=== PATIENT | female | born 1995 | race Caucasian/White ===

== ENCOUNTER 2017-07-22 19:27 | Emergency (ER) | payer OTHER ==
[2017-07-22] MEDS: ONDANSETRON 4MG/2ML VIAL (J2405) IV (20:40)
[2017-07-22] MEDS: NS 1,000 ML IV (20:40)
== END 2017-07-22 21:51 | disposition home or self-care (01) ==
LOC: M ED 19:27
DX: O21.0 Mild hyperemesis gravidarum (principal); Z3A.01 Less than 8 weeks gestation of pregnancy; Z87.891 Personal history of nicotine dependence
CPT/HCPCS: J2405

== ENCOUNTER 2017-08-07 08:26 | Emergency (ER) | payer OTHER ==
[2017-08-07] MEDS: NS 1,000 ML IV ×2 (08:45→10:51)
[2017-08-07] MEDS: ONDANSETRON 4MG/2ML VIAL (J2405) IV (09:00)
[2017-08-07 09:12] LABS: BASO # 0.1 10^3/uL (0.0-0.2); BASO % 0.5 % (0.0-1.0); EOS # 0.1 10^3/uL (0.0-0.50); EOS % 0.9 % (0.0-3.0); HEMATOCRIT 38.4 % (36.0-47.0); HEMOGLOBIN 13.4 g/dl (12.0-16.0); IMMATURE GRANULOCYTE % 0.5 % (0-3.0); LYMPH # 1.9 10^3/uL (1.5-6.5); LYMPH % 17.4 % (24.0-44.0); MEAN CORPUSCULAR HEMOGLOBIN 31.1 pg (27.0-33.0); MEAN CORPUSCULAR HGB CONC 34.9 g/dl (32.0-36.5); MEAN CORPUSCULAR VOLUME 89.1 fl (80.0-96.0); MONO # 0.7 10^3/uL (0.0-0.8); MONO % 6.3 % (0.0-5.0); NEUTROPHILS % 74.4 % (36.0-66.0); PLATELET COUNT, AUTOMATED 226 10^3/uL (150-450); RED BLOOD COUNT 4.31 10^6/uL (4.00-5.40); WHITE BLOOD COUNT 10.7 10^3/uL (4.0-10.0)
[2017-08-07 09:31] LABS: LACTIC ACID SEPSIS PROTOCOL 2.2 MMOL/L (0.4-2.0)
[2017-08-07 09:46] LABS: ANION GAP 8 MEQ/L (8-16); BLOOD UREA NITROGEN 9 MG/DL (7-18); CALCIUM LEVEL 9.1 MG/DL (8.5-10.1); CARBON DIOXIDE LEVEL 25 MEQ/L (21-32); CHLORIDE LEVEL 103 MEQ/L (98-107); GLOMERULAR FILTRATION RATE > 60.0 (>60); GLUCOSE, FASTING 96 MG/DL (70-100); HCG, SERUM QUANTITATIVE 135095 MIU/ML; POTASSIUM SERUM 3.9 MEQ/L (3.5-5.1); SODIUM LEVEL 136 MEQ/L (136-145)
== END 2017-08-07 12:07 | disposition home or self-care (01) ==
LOC: M ED 08:26
DX: O21.9 Vomiting of pregnancy, unspecified (principal); Z3A.08 8 weeks gestation of pregnancy; Z87.891 Personal history of nicotine dependence
CPT/HCPCS: J2405

== ENCOUNTER 2018-03-18 14:50 | Inpatient (IN) | payer OTHER ==
[2018-03-18] MEDS ORDERED: PENICILLIN G POTASSIUM IV 5 MU in D5W MINI-BAG PLUS 100 ML IV (16:18)
[2018-03-18 17:07] LABS: HEMATOCRIT 35.8 % (36.0-47.0); HEMOGLOBIN 11.5 g/dl (12.0-15.5); MEAN CORPUSCULAR HEMOGLOBIN 26.9 pg (27.0-33.0); MEAN CORPUSCULAR HGB CONC 32.1 g/dl (32.0-36.5); MEAN CORPUSCULAR VOLUME 83.8 fl (80.0-96.0); PLATELET COUNT, AUTOMATED 153 10^3/uL (150-450); RED BLOOD COUNT 4.27 10^6/uL (4.00-5.40); RED CELL DISTRIBUTION WIDTH 14.3 % (11.5-14.5)
[2018-03-18] MEDS: LR 1,000 ML IV ×2 (19:11→20:40)
[2018-03-18] MEDS: OXYTOCIN DRIP 30 UNITS in APPROPRIATE DILUENT 1 EA IV (19:11)
[2018-03-18] MEDS ORDERED: FENTANYL 2MCG/ML ROPIVACAINE 0.2% IN 0.9% NACL 200ML IVBAG As Ordered (20:16)
[2018-03-18] MEDS ORDERED: PENICILLIN G POTASSIUM IV 2.5 MU in APPROPRIATE DILUENT 1 EA IV (20:30)
[2018-03-18] MEDS ORDERED: **PENDING PCN ENTRY XX (21:00)
[2018-03-18] MEDS ORDERED: FENTANYL/ROPIVACAINE/NACL BAG 200 ML EPIDURAL (21:30)
[2018-03-18] MEDS ORDERED: diphenhydrAMINE INJ 50MG/ML VIAL (J1200) IV (21:30)
[2018-03-18] MEDS ORDERED: LACTATED RINGER'S 1000 ML IV (21:30)
[2018-03-18] MEDS ORDERED: EPIDURAL COMMENT XX (21:30)
[2018-03-18] MEDS ORDERED: REFRIGERATOR IV KEYS XX (21:30)
[2018-03-18] MEDS ORDERED: EPIDURAL/PCA KEYS XX (21:30)
[2018-03-18] MEDS ORDERED: ePHEDrine SULFATE 25 MG/5 ML(5MG/ML) SYRINGE IV (21:30)
[2018-03-18] MEDS ORDERED: ONDANSETRON 4MG/2ML VIAL (J2405) IV (21:30)
[2018-03-18] MEDS ORDERED: NALOXONE INJ 0.4 MG/1 ML VIAL (J2310) IV (21:30)
[2018-03-18] MEDS: PENICILLIN G POTASSIUM IV 5 MU in D5W MINI-BAG PLUS 100 ML IV (21:59)
[2018-03-18] MEDS: OXYTOCIN INJ 10 UNITS/ML VIAL (J2590) IV (23:43)
[2018-03-18 23:50] LABS: CORD GAS ABE A -3.5; CORD GAS ABE V -1.2; CORD GAS HCO3 V 24.6 MEQ/L; CORD GAS O2 SAT A 59.2 %; CORD GAS O2 SAT V 62.1 %; CORD GAS PCO2 A 41.7 mmHg; CORD GAS PCO2 V 44.6 mmHg; CORD GAS PH A 7.341 UNITS; CORD GAS PH V 7.359 UNITS; CORD GAS PO2 A 23.9 mmHg; CORD GAS PO2 V 24.1 mmHg; CORD GAS SBC A 20.5 MEQ/L; CORD GAS SBC V 22.4 MEQ/L; CORD GAS TCO2 A 23.3 MEQ/L; CORD GAS TCO2 V 25.9 MEQ/L
[2018-03-19] MEDS ORDERED: MOM 30ML SUSPENSION UDC PO (00:15)
[2018-03-19] MEDS ORDERED: MEASLES,MUMPS,RUBELLA VACCINE INJ (MMR-II) (90707) SC (00:15)
[2018-03-19] MEDS ORDERED: RHOGAM 300 MCG (1500 IU) INJ (J2790) IM (00:15)
[2018-03-19] MEDS ORDERED: METHYLERGONOVINE MALEATE 0.2 MG TAB PO (00:15)
[2018-03-19] MEDS ORDERED: ACETAMINOPHEN 500 MG TAB PO (00:15)
[2018-03-19] MEDS ORDERED: ANUSOL HC CREAM 30GM TOP (00:15)
[2018-03-19] MEDS ORDERED: DIBUCAINE 1% OINTMENT 30GM TOP (00:15)
[2018-03-19] MEDS ORDERED: PENICILLIN G POTASSIUM IV 2.5 MU in APPROPRIATE DILUENT 1 EA IV (02:00)
[2018-03-19] MEDS: PRENATAL VITAMINS CHEWABLE TABLET PO (08:45)
[2018-03-20] MEDS: DOCUSATE SODIUM 100 MG CAP PO (01:33)
[2018-03-20 06:45] LABS: HEMATOCRIT 30.9 % (36.0-47.0); HEMOGLOBIN 9.7 g/dl (12.0-15.5); MEAN CORPUSCULAR HEMOGLOBIN 26.9 pg (27.0-33.0); MEAN CORPUSCULAR HGB CONC 31.4 g/dl (32.0-36.5); MEAN CORPUSCULAR VOLUME 85.6 fl (80.0-96.0); PLATELET COUNT, AUTOMATED 132 10^3/uL (150-450); RED BLOOD COUNT 3.61 10^6/uL (4.00-5.40); RED CELL DISTRIBUTION WIDTH 14.5 % (11.5-14.5); WHITE BLOOD COUNT 11.3 10^3/uL (4.0-10.0)
[2018-03-20] MEDS: PRENATAL VITAMINS CHEWABLE TABLET PO (07:50)
[2018-03-20] MEDS: INFLUENZA QUADRIVALENT PF VACCINE 0.5ML SYRINGE (90686) IM (07:52)
[2018-03-20] MEDS: IBUPROFEN 800 MG TAB PO (14:03)
== END 2018-03-20 14:00 | disposition home or self-care (01) | DRG 775 ==
LOC: M LDO 14:50 → M OBS 03-19 02:23 → M LDI 16:22
PROVIDERS: Obstetrics & Gynecology
PROC: 10E0XZZ Delivery of Products of Conception, External Approach (ICD-10-PCS; principal; 2018-03-18)
DX: O48.0 Post-term pregnancy (principal); O99.824 Streptococcus B carrier state complicating childbirth; Z3A.40 40 weeks gestation of pregnancy; Z37.0 Single live birth